=== PATIENT | male | born 1975 | race Caucasian/White ===

== ENCOUNTER 2016-08-10 03:54 | Inpatient (IN) | payer MEDICAID, OTHER ==
[2016-08-10] VITALS (11 sets, daily range): BP systolic 126–202; BP diastolic 72–121; PULSE 91–120; RESP 18–20; TEMP 97.5–100.1; O2SAT 94–100
[~2016-08-10] VITALS: Ht 182.9 cm; Wt 85.0 kg
[2016-08-10] MEDS: SODIUM CHLOR 0.9% 1000 ML INJ 1,000 ML IV SCH ×4 (04:11→20:14)
[2016-08-10] MEDS ORDERED: LORazepam 2 MG/ML VIAL IV PUSH ONE ×2 (04:15→05:30)
[2016-08-10] MEDS ORDERED: SODIUM CHLORIDE 0.9% FLUSH 5 ML FLUSH IVF PRN (04:15)
[2016-08-10] MEDS ORDERED: GLUCAGON 1 MG/ML VIAL IV PUSH ONE (04:15)
[2016-08-10 04:18] LABS: AUTOMATED NEUTROPHIL # 12.7 TH/MM3 (1.8-7.7); BASOPHIL % 0.2 % (0.0-2.0); EOSINOPHIL # 0.2 TH/MM3 (0-0.4); EOSINOPHIL % 1.1 % (0.0-4.0); HEMATOCRIT 44.3 % (39.0-51.0); HEMO FLAGS DIFF FINAL; LYMPH % 16.5 % (9.0-44.0); LYMPHOCYTE # 2.8 TH/MM3 (1.0-4.8); MEAN CELL VOLUME 88.4 FL (80.0-100.0); MEAN CORPUSCULAR HEMOGLOBIN 29.3 PG (27.0-34.0); MEAN CORPUSCULAR HGB CONC 33.2 % (32.0-36.0); MONO % 6.5 % (0.0-8.0); NEUT % 75.7 % (16.0-70.0); PLATELET COUNT 325 TH/MM3 (150-450); RED BLOOD COUNT 5.02 MIL/MM3 (4.50-5.90); RED CELL DISTRIBUTION WIDTH 12.6 % (11.6-17.2); WHITE BLOOD COUNT 16.8 TH/MM3 (4.0-11.0)
[2016-08-10 04:45] LABS: BICARBONATE 27.4 MEQ/L (21.0-32.0); POTASSIUM 3.7 MEQ/L (3.5-5.1)
--- NOTE | 2016-08-10 05:13 | RADRPT ---
EXAM DATE/TIME: 08/10/2016 04:37 [place] COMPARISON: No previous studies available for comparison. INDICATIONS : Evaluate for foreign body. RADIATION DOSE: 15.78 CTDIvol (mGy) MEDICAL HISTORY : None SURGICAL HISTORY : None. ENCOUNTER: Initial ACUITY: 1 day PAIN SCORE: 4/10 LOCATION: throat TECHNIQUE: Volumetric scanning of the neck was performed. Using automated exposure control and adjustment of th e mA and/or kV according to patient size, radiation dose was kept as low as reasonably achievable to obtain optimal diagnostic quality images. FINDINGS: Examination of the skull base demonstrates no evidence of deep infiltrating mucosal lesion. The oroph arynx, hypopharynx, glottic and subglottic airway demonstrate no abnormality. Vallecular cyst is pres ent on the right measuring 15 mm. No foreign body is identified. Examination of the neck for adenopathy demonstrates no abnormally large lymph nodes by CT criteria. T he thyroid gland demonstrates no abnormality. Lung apices demonstrate no evidence of pulmonary nodule. Bone windows are unremarkable. CONCLUSION: 1. No foreign body is identified. Unremarkable CT scan of the neck. No masses are identified. Jesus Bui MD on August 10, 2016 at 5:09 Board Certified Radiologist. This report was verified electronically.
[2016-08-10] MEDS ORDERED: methylPREDNISolone SOD SUCC 125 MG/2 ML VIAL IVP ONE (05:30)
--- NOTE | 2016-08-10 05:32 | PD ---
HPI Chief Complaint: Foreign Body Time Seen by Provider: 04:01 Travel History International Travel<30 days: No Contact w/Intl Traveler<30days: No Traveled to known affect area: No History of Present Illness HPI 41-year-old male arrives to the ER by private auto. He was eating a sandwich at about 3:30 in the morning. He states is a bit of a night owl. It contained processed ribs apparently. While swallowing he's felt a sudden pain in the upper neck/esophagus described as a sensation of foreign body. For him it is extremely uncomfortable however he refuses pain medication. He has no difficulty breathing. He states he's had pharyngitis for the past few days. He 's had no fever. His girlfriend notes his right ear has been bothersome. He has never undergone endoscopy. No similar prior episode has occurred. He denies drug abuse/IV drug abuse. He denies smoking history and alcohol history. PFSH Past Medical History Medical History: Denies Significant Hx Immunizations Current: Yes Tetanus Vaccination: Unknown Influenza Vaccination: No Past Surgical History Surgical History: No Previous Surgery Social History Alcohol Use: No Tobacco Use: No Substance Use: No Allergies-Medications (Allergen,Severity, Reaction): Coded Allergies: No Known Allergies (Unverified , 08/10/16) Reported Meds & Prescriptions Reported Meds & Active Scripts Active No Active Prescriptions or Reported Medications Review of Systems Except as stated in HPI: all other systems reviewed are Neg Respiratory: Positive: Wheezing Physical Exam Narrative GENERAL: 41-year-old male well-nourished well-developed quite anxious SKIN: Warm and dry. Piloerection observed. HEAD: Atraumatic. Normocephalic. EYES: Pupils equal and round. No scleral icterus. No injection or drainage. ENT: No nasal bleeding or discharge. Mucous membranes pink and moist. Cerumen impaction present bilaterally. Posterior oropharynx is slightly erythematous however there is no exudate about the tonsils, asymmetry or unilateral depression of the soft palate. NECK: Trachea midline. No JVD. Minimal anterior adenopathy. CARDIOVASCULAR: Mild tachycardia at about 100 or so. Regular rhythm. RESPIRATORY: Mild tachypnea. Wheezing present. GASTROINTESTINAL: Abdomen soft, non-tender, nondistended. Hepatic and splenic margins not palpable. MUSCULOSKELETAL: No obvious deformities. No clubbing. No cyanosis. No edema. NEUROLOGICAL: Awake and alert. No obvious cranial nerve deficits. Motor grossly within normal limits. Normal speech. PSYCHIATRIC: Patient is fairly anxious in fact nearly hysterical. No apparent response to internal stimulus. Data Data Last Documented VS Vital Signs Date Time Temp Pulse Resp B/P Pulse Ox O2 Delivery O2 Flow Rate FiO2 08/10/16 05:17 91 20 142/83 98 Nasal Cannula 2 08/10/16 04:05 98.0 Orders Basic Metabolic Panel (Bmp) (08/10/16 04:01) Complete Blood Count With Diff (08/10/16 04:01) Iv Access Insert/Monitor (08/10/16 04:01) Ecg Monitoring (08/10/16 04:01) Oximetry (08/10/16 04:01) Sodium Chlor 0.9% 1000 Ml Inj (Ns 1000 M (08/10/16 04:01) Sodium Chloride 0.9% Flush (Ns Flush) (08/10/16 04:15) Lorazepam Inj (Ativan Inj) (08/10/16 04:15) Ct Soft Tiss Neck W/O Iv Cont (08/10/16 ) Glucagon Inj (Glucagon Inj) (08/10/16 04:15) Lorazepam Inj (Ativan Inj) (08/10/16 05:30) Methylprednisolone So Succ Inj (Solumedr (08/10/16 05:30) Albuterol Neb (Albuterol Neb) (08/10/16 05:30) Labs Laboratory Tests Test 08/10/16 04:10 White Blood Count 16.8 TH/MM3 Red Blood Count 5.02 MIL/MM3 Hemoglobin 14.7 GM/DL Hematocrit 44.3 % Mean Corpuscular Volume 88.4 FL Mean Corpuscular Hemoglobin 29.3 PG Mean Corpuscular Hemoglobin 33.2 % Concent Red Cell Distribution Width 12.6 % Platelet Count 325 TH/MM3 Mean Platelet Volume 9.0 FL Neutrophils (%) (Auto) 75.7 % Lymphocytes (%) (Auto) 16.5 % Monocytes (%) (Auto) 6.5 % Eosinophils (%) (Auto) 1.1 % Basophils (%) (Auto) 0.2 % Neutrophils # (Auto) 12.7 TH/MM3 Lymphocytes # (Auto) 2.8 TH/MM3 Monocytes # (Auto) 1.1 TH/MM3 Eosinophils # (Auto) 0.2 TH/MM3 Basophils # (Auto) 0.0 TH/MM3 CBC Comment DIFF FINAL Differential Comment Sodium Level 135 MEQ/L Potassium Level 3.7 MEQ/L Chloride Level 99 MEQ/L Carbon Dioxide Level 27.4 MEQ/L Anion Gap 9 MEQ/L Blood Urea Nitrogen 11 MG/DL Creatinine 1.20 MG/DL Estimat Glomerular Filtration 67 ML/MIN Rate Random Glucose 150 MG/DL Calcium Level 8.9 MG/DL [facility] Medical Decision Making Medical Screen Exam Complete: Yes Emergency Medical Condition: Yes Differential Diagnosis Impaction of food bolus in the esophagus, esophagitis, bacterial pharyngitis or viral pharyngitis, anxiety Narrative Course CBC & BMP Diagram 08/10/16 04:10 Last [address] 08/10/16 0000 Signed Impressions: Service Date/Time: Wednesday, August 10, 2016 04:37 - CONCLUSION: 1. No foreign body is identified. Unremarkable CT scan of the neck. No masses are identified. Jesus Bui MD Patient reassessed at about 5:30 AM amidst an episode of quite significant anxiety. He at that point disclosed a smoking history. DuoNebs ordered. The patient also received a second 0.5 mg dose of IV Ativan. He is concerned that the food bolus has shifted from the right side of his throat to the left side of the throat, provoking his anxiety ever more so. He has drank approximately 4 -6 ounces of ice water since his arrival and hour and a half prior to ER stay. Each sip is accompanied with coughing however he does state he feels water enter the stomach, typically after about 60 seconds or so. At we will watch the patient closely in the ER. He is hemodynamically stable. Bacterial etiology for erythematous change about the posterior oropharynx is considered quite unlikely. The patient's significant other reports that the he typically has a tendency to conduct his behavior in a dramatic fashion. Case discussed with gastroenterology, Dr. Layne, who will take the patient to the endoscopy suite early this morning. Diagnosis Primary Impression: Foreign body of esophagus Qualified Code: T18.108A - Foreign body of esophagus, initial encounter Scripts No Active Prescriptions or Reported Meds Jeremías Potts MD Aug 10, 2016 05:32
[2016-08-10] MEDS: RESP: ALBUTEROL 2.5 MG/3 ML NEB (SCH) INH ×2 (05:38→05:39)
[2016-08-10] MEDS ORDERED: PROPOFOL 200 MG/20 ML AMP IV ONE (08:29)
[2016-08-10] MEDS ORDERED: AMPICILLIN/SULBAC 3 GM/NS 100 ML IV ONE ×2 (09:00)
[2016-08-10] MEDS ORDERED: AMPICILLIN-SULBACTAM INJ 3 GM VIAL IM SCH (09:00)
[2016-08-10] MEDS ORDERED: DO NOT ADM ANY ANTICOAGULANT DRUGS XX PRN (10:15)
--- NOTE | 2016-08-10 11:18 | MB ---
cc: KEIRA VILLEDA M.D., DANIEL C. MD DATE OF CONSULTATION: 08/10/[address] Potts REASON FOR CONSULTATION Possible foreign body in the esophagus. HISTORY OF PRESENT ILLNESS Mr. Howard is a 41-year-old gentleman, not a very good historian. He was battling pharyngitis symptoms for the last couple of days. He came to the emergency room with complaints of sore throat, pain on swallowing after eating a sandwich earlier this morning around 3:30 a.m. The patient had some fever, some ear pain according to his girlfriend. He never had this type of problem before. A CT neck done in the emergency room was negative. He was given also some breathing treatment and anxiolytics as he was quite agitated. He denies any weight loss, constipation, melena, hematemesis or hematochezia. He admits he may have had some issues with swallowing for a while. PAST MEDICAL HISTORY None. PAST SURGICAL HISTORY None. SOCIAL HISTORY Denies smoking, drinking or drug use. ALLERGIES No known allergies. MEDICATIONS Currently none. REVIEW OF SYSTEMS CONSTITUTIONAL: He did have some fever. No chills. ENT: He does have dysphagia or odynophagia in the upper part of his throat. PULMONARY: Denies any shortness of breath or cough. GASTROINTESTINAL: As above. CARDIOVASCULAR: Denies any pedal edema or palpitations. SKIN: No alteration in baseline skin lesion. NEUROLOGIC: No history of TIA or CVA kind of symptoms. PHYSICAL EXAMINATION GENERAL: On clinical exam he is sitting in bed. He is quite anxious. VITAL SIGNS: Pulse 100, blood pressure 142/83. HEENT: UBTCH. NECK: No JVD. No lymphadenopathy. CHEST: Clear to the auscultation and percussion. CARDIOVASCULAR: S1, S2. No murmur. ABDOMEN: Soft, nontender. Bowel sounds are present. MOTION PICTURE PROJECTIONIST: Awake, alert, oriented x3. No focal signs identified. LABORATORY White count 16.8, hemoglobin 14.7, platelets 325. Chemistry: Glucose 150, otherwise CMP normal. IMAGING CT of the neck was done and negative for any pathology. The patient was given water in the emergency room which he was able to swallow. He is swelling his saliva with no issues. Drinking okay. IMPRESSION Oropharyngeal dysphagia, worsening after eating a sandwich last night, concern for possible foreign body in his esophagus, acute pharyngitis per primary. RECOMMENDATIONS Upper endoscopy with possible dilatation and foreign body removal will be scheduled. The risks and benefits were discussed with the patient and he is agreeing with it. I would like to thank Dr. Potts for referring him to our office for consultation. If no pathology or explanation is found in his esophagus, he will be referred back to emergency room or admission. Thank you again. Will continue to follow the patient along with you. Keira Villeda MD BSB/BT /9:16 AM /11:02 AM
[2016-08-10] MEDS ORDERED: NALOXONE HCL 0.4 MG/ML AMP IV PRN (12:00)
[2016-08-10] MEDS ORDERED: ACETAMINOPHEN 325 MG TAB PO PRN (12:00)
[2016-08-10] MEDS ORDERED: SODIUM CHLORIDE 0.9% FLUSH 5 ML FLUSH FLUSH PRN (12:00)
[2016-08-10] MEDS ORDERED: LORazepam 2 MG/ML VIAL IV PUSH PRN (12:00)
--- NOTE | 2016-08-10 12:01 | HHI.HP ---
[facility] No Primary Care Physician Admission Diagnosis Diagnoses: Chief Complaint: Throat pain, sensation of foreign body Travel History International Travel<30 Days: No Contact w/Intl Traveler <30 Da: No Traveled to Known Affected Are: No History of Present Illness The patient is a 41-year-old male presenting to the hospital with neck pain and the sensation that something was stuck in his throat. The patient was lethargic following endoscopy and did not want to participate in the history of present illness, therefore the history is obtained from the medical record and discussion with nursing. Apparently he was eating a sandwich at about 3:30 in the morning and while swallowing he felt a sudden pain in the upper neck/ esophagus described as a sensation of a foreign body. He had no difficulty breathing associated with it. He states he's had pharyngitis for the past few days. He's had no fever. His girlfriend notes his right ear has been bothersome. He has had no similar prior episode prior to this. He was taken to endoscopy by GI and no foreign body was visualized. A mucocele was noted during endoscopy. Following endoscopy he was lethargic and resting on the stretcher. He did not open his eyes. He would just nod or shake his head in response to some questions. Review of Systems ROS Limitations: Clinical Condition, Uncooperative, Refused, Poor Historian Except as stated in HPI: all other systems reviewed are Neg Past Family Social History Past Medical History Unable to obtain at this time. Past Surgical History Unable to obtain at this time. Allergies: Coded Allergies: No Known Allergies (Unverified , 08/10/16) Active Ordered Medications Current Medications Medications (Trade) Dose Ordered Sig/Nehemiah Route Start Time Stop Time Status Last Admin (NS 1000 ml Inj) 1,000 ml @ 125 mls/hr Q8H IV 08/10/16 04:01 08/10/16 12:00 08/10/16 09:27 IV Flush 2 ml 2 ml UNSCH PRN IVF 08/10/16 04:15 08/10/16 04:12 (Unasyn Inj/NS Inj) 100 ml @ 200 mls/hr Q6H IV 08/10/16 15:00 Miscellaneous Information ALL NURSING DEPARTME... UNSCH PRN XX 08/10/16 10:15 08/11/16 10:14 Family History Unable to obtain at this time. Social History The patient indicates that he smokes 1 pack per day. He denies smoking or illicit drug use. Physical Exam Vital Signs Vital Signs Date Time Temp Pulse Resp B/P Pulse Ox O2 Delivery O2 Flow Rate FiO2 08/10/16 11:00 99.8 93 16 136/69 99 Room Air 08/10/16 10:00 106 14 154/74 99 Nasal Cannula 4 08/10/16 09:45 111 14 136/76 99 Nasal Cannula 4 08/10/16 09:30 112 14 153/85 94 Nasal Cannula 4 08/10/16 09:15 108 14 151/87 99 Nasal Cannula 4 08/10/16 08:57 99.8 116 14 160/80 100 Simple Mask 6 08/10/16 07:45 100.1 109 20 164/72 97 Nasal Cannula 2 08/10/16 07:13 109 20 156/78 98 Nasal Cannula 2 08/10/16 05:55 100 40 08/10/16 05:17 91 20 142/83 98 Nasal Cannula 2 08/10/16 04:05 98.0 100 20 202/121 98 Room Air 08/10/16 04:04 20 08/10/16 03:58 98.0 120 20 144/99 96 Physical Exam GENERAL: Well-nourished, well-developed quite, sleeping. SKIN: Warm and dry. Piloerection observed. HEAD: Atraumatic. Normocephalic. EYES: Pupils equal and round. No scleral icterus. No injection or drainage. ENT: No nasal bleeding or discharge. Mucous membranes pink and moist. Posterior oropharynx is slightly erythematous however there is no exudate about the tonsils, asymmetry or unilateral depression of the soft palate. NECK: Trachea midline. No JVD. Minimal anterior adenopathy. CARDIOVASCULAR: Tachycardic, no murmurs. RESPIRATORY: Poor respiratory effort. Clear to auscultation bilaterally. GASTROINTESTINAL: Abdomen soft, non-tender, nondistended. Hepatic and splenic margins not palpable. MUSCULOSKELETAL: No obvious deformities. No clubbing. No cyanosis. No edema. NEUROLOGICAL: Lethargic. No obvious cranial nerve deficits. Motor grossly within normal limits. PSYCHIATRIC: Withdrawn. Laboratory Laboratory Tests Test 08/10/16 04:10 White Blood Count 16.8 Red Blood Count 5.02 Hemoglobin 14.7 Hematocrit 44.3 Mean Corpuscular Volume 88.4 Mean Corpuscular Hemoglobin 29.3 Mean Corpuscular Hemoglobin 33.2 Concent Red Cell Distribution Width 12.6 Platelet Count 325 Mean Platelet Volume 9.0 Neutrophils (%) (Auto) 75.7 Lymphocytes (%) (Auto) 16.5 Monocytes (%) (Auto) 6.5 Eosinophils (%) (Auto) 1.1 Basophils (%) (Auto) 0.2 Neutrophils # (Auto) 12.7 Lymphocytes # (Auto) 2.8 Monocytes # (Auto) 1.1 Eosinophils # (Auto) 0.2 Basophils # (Auto) 0.0 CBC Comment DIFF FINAL Differential Comment Sodium Level 135 Potassium Level 3.7 Chloride Level 99 Carbon Dioxide Level 27.4 Anion Gap 9 Blood Urea Nitrogen 11 Creatinine 1.20 Estimat Glomerular Filtration 67 Rate Random Glucose 150 Calcium Level 8.9 Result Diagram: 08/10/16 0410 08/10/16 0410 Imaging Last Impressions Neck CT 08/10/16 0000 Signed Impressions: Service Date/Time: Wednesday, August 10, 2016 04:37 - CONCLUSION: 1. No foreign body is identified. Unremarkable CT scan of the neck. No masses are identified. Jesus Bui MD Assessment and Plan Assessment and Plan Throat pain Thought to be secondary to foreign body ingestion. CT of the neck was negative. GI was consulted and endoscopy was negative for foreign body but did reveal mucocele. The patient has had a sore throat several days prior to admission. He was started on IV antibiotics. - Continue Unasyn. - ENT consult pending. - Oxygen as needed and monitor airway. Duonebs as needed. - Keep the patient nothing by mouth. Swallow eval requested. - IVFs. - check a rapid strep screen. HTN Likely a stress response. No history of hypertension in the past. - Continue to monitor for now. Tachycardia Also likely a stress response. - IV fluids. - Continue to monitor. - Obtain an EKG. Agitation Unsure if the patient has a psych history but the patient was very agitated earlier. Currently he is lethargic. - Ativan as needed. Nicotine abuse Smokes a pack a day. - nicotine patch. - cessation instruction. Hypoglycemia May be a stress reaction. - Check a hemoglobin A1c. PPx: SCDs. Discussed Condition With Pt, nurse. Dwight Phelps DO Aug 10, 2016 12:01
[2016-08-10] MEDS ORDERED: RESP: ALBUTEROL 2.5 MG/IPRATROPIUM 0.5 MG NEB (PRN) NEB (12:15)
[2016-08-10] MEDS: DEXAMETHASONE SOD PHOS 4 MG/ML VIAL IV PUSH SCH ×2 (12:48→21:54)
[2016-08-10] MEDS: NICOTINE 21 MG/24 HR PATCH TD SCH (12:50)
[2016-08-10] MEDS: AMPICILLIN/SULBAC 3 GM/NS 100 ML IV SCH ×4 (15:23→20:13)
[2016-08-10 20:03] LABS: HEMOGLOBIN A1a 0.9 %; HEMOGLOBIN A1b 1.7 %; HEMOGLOBIN Ao 85.1 %; HEMOGLOBIN LA1C 2.3 %; HEMOGLOBIN P3 3.9 %
[2016-08-10] MEDS: SODIUM CHLORIDE 0.9% FLUSH 5 ML FLUSH FLUSH SCH (20:10)
[2016-08-10] MEDS: ACETAMINOPHEN 325 MG TAB PO PRN (20:16)
[2016-08-10] MEDS ORDERED: REMOVE OLD NICODERM (NICOTINE) PATCH TD SCH (21:00)
[2016-08-11] VITALS: BP 130/72; PULSE 79; RESP 16; TEMP 97.1; O2SAT 98
[2016-08-11] MEDS ORDERED: PANTOPRAZOLE SODIUM 40 MG VIAL IV PUSH SCH (03:45)
[2016-08-11] MEDS: AMPICILLIN/SULBAC 3 GM/NS 100 ML IV SCH ×4 (03:47→08:11)
[2016-08-11 04:00] VITALS: BP 130/70; PULSE 79; RESP 16; TEMP 97.1; O2SAT 97
[2016-08-11] MEDS: DEXAMETHASONE SOD PHOS 4 MG/ML VIAL IV PUSH SCH (05:29)
[2016-08-11] MEDS: NICOTINE 21 MG/24 HR PATCH TD SCH (05:34)
[2016-08-11 07:50] VITALS: BP 131/69; PULSE 86; RESP 20; TEMP 97.1
[2016-08-11 08:01] LABS: AUTOMATED NEUTROPHIL # 18.3 TH/MM3 (1.8-7.7); BASOPHIL % 0.2 % (0.0-2.0); HEMATOCRIT 40.5 % (39.0-51.0); HEMO FLAGS DIFF FINAL; LYMPH % 5.4 % (9.0-44.0); LYMPHOCYTE # 1.1 TH/MM3 (1.0-4.8); MEAN CELL VOLUME 88.6 FL (80.0-100.0); MEAN CORPUSCULAR HEMOGLOBIN 29.8 PG (27.0-34.0); MEAN CORPUSCULAR HGB CONC 33.6 % (32.0-36.0); MONO % 3.9 % (0.0-8.0); NEUT % 90.5 % (16.0-70.0); PLATELET COUNT 284 TH/MM3 (150-450); RED BLOOD COUNT 4.57 MIL/MM3 (4.50-5.90); RED CELL DISTRIBUTION WIDTH 12.8 % (11.6-17.2); WHITE BLOOD COUNT 20.2 TH/MM3 (4.0-11.0)
[2016-08-11] MEDS: SODIUM CHLOR 0.9% 1000 ML INJ 1,000 ML IV SCH (08:12)
--- NOTE | 2016-08-11 08:16 | MB ---
cc: ADAM LESLIE MD DATE OF CONSULTATION 08/11/2016 CHIEF COMPLAINT Dysphagia. HISTORY OF PRESENT ILLNESS This 41-year-old male presented to the hospital with neck pain yesterday morning complaining that he felt like food was stuck in his throat. He apparently was eating a sandwich in the middle of the night/early in the morning at 03:30 and felt sudden pain in his throat and his esophagus, felt like the food was stuck. He did not have any difficulty in breathing at the time but was brought into the hospital by his significant other. He reports he has never had any previous episode of this. Yesterday he underwent GI exam with an EGD and they noticed no food being stuck in his esophagus or his pharynx. They did note what appeared to be to them multiple mucoceles in has pharynx and he was admitted due to lethargy after the endoscopy and just not willing to participate much in his postoperative care, whether uncooperative or a poor historian. This morning he is resting comfortably in bed and is able to answer my questions. He reports he has had some weight loss. He feels like his weight fluctuates up and down. He says, according to his significant other, he has stopped eating as much but he does not feel that he has had significant swallowing problems recently and has not had any episodes like this prior. He reports that it started with right ear pain sometime prior to the episode of feeling like the sandwich got stuck in his throat and then, after swallowing the sandwich he felt significant pain and that is what prompted him to come to the emergency room. He is reporting today that he is able to swallow with no difficulty and is able to swallow back to way he felt like he was swallowing prior to this episode. PAST MEDICAL HISTORY None. PAST SURGICAL HISTORY None. SOCIAL HISTORY The patient reports to me that he does not drink or smoke. ALLERGIES He says he has no known drug allergies. MEDICATIONS Currently not taking any medications. PHYSICAL EXAMINATION HEENT: Exam reveals the patient to be somewhat thin. His ears are normal. No evidence of any lesions. He still complains of right ear pain. NECK: The neck exam reveals no palpable adenopathy but some pain on the right side upon palpation. Flexible laryngoscopy performed at bedside reveals a lesion on the left side of the uvula that is pale yellow in color, appears to be a possible mucus retention cyst which is an unusual location on the uvula. He has a large lesion of his base of tongue, vallecula, epiglottis area on the lingual surface of the epiglottis; this is not obstructing his airway, is erythematous and exophytic-appearing. The remainder of his larynx is without lesions. LUNGS: Clear to auscultations. HEART: Regular rate and rhythm. IMAGING STUDIES CT scan reviewed as a noncontrasted CT scan. There is some obvious lesion of the vallecula on the scan but there is no other pathology that you can see on the noncontrasted scan. 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 At this time, although on the pictures from the endoscopy it does look like it could possibly be a mucocele, with the patient's somewhat fluctuating weight as well as the right ear pain, I do have some concern that this could be a malignant process. At this time I think he should have a contrasted CT scan, continue his diet as planned and follow up me in my office after discharge to schedule a planned direct laryngoscopy with biopsies to rule out any malignant process. If he could get the CT scan obtained while here in the hospital, that would make it easier for him as he does have some financial difficulties. Otherwise, we will see him in the office and plan accordingly for biopsies and to determine if this is in fact a malignant process or if it is a vallecula mucocele as determined on the noncontrasted CT scan. I have explained this to the patient, he understands this and agrees to follow up in my office this next week. Adam CASTILLO/REINIER /7:53 AM /8:06 AM
[2016-08-11 08:17] VITALS: O2SAT 96
[2016-08-11] MEDS: ACETAMINOPHEN 325 MG TAB PO PRN (08:20)
[2016-08-11 08:43] LABS: BICARBONATE 22.5 MEQ/L (21.0-32.0); POTASSIUM 3.9 MEQ/L (3.5-5.1)
[2016-08-11] MEDS: SODIUM CHLORIDE 0.9% FLUSH 5 ML FLUSH FLUSH SCH (09:00)
[2016-08-11] MEDS ORDERED: SODIUM CHLOR 0.9% 1000 ML INJ 1,000 ML IV SCH (10:15)
--- NOTE | 2016-08-11 10:27 | HHI.DCPOC ---
Discharge Care Plan Diagnosis: (1) Mass of epiglottis Your Health Problems Are: Inflammation Swelling Difficulty to Swallow Goals to Promote Your Health * To prevent worsening of your condition and complications * To maintain your health at the optimal level Directions to Meet Your Goals Take your medications as prescribed Follow your dietary instruction Follow activity as directed Keep your appointments as scheduled Take your immunizations and boosters as scheduled If your symptoms worsen call your PCP, if no PCP go to Urgent Care Center or Emergency Room Smoking is Dangerous to Your Health. Avoid second hand smoke Call the 24-hour hour crisis hotline for domestic abuse at Dwight Phelps DO Aug 11, 2016 10:27
[2016-08-11] MEDS ORDERED: AUGM875T PO (10:33)
--- NOTE | 2016-08-11 10:39 | HHI.PR ---
Subjective Remarks The patient said that he had a muffled voice. He said he was having some difficulties with soft foods but would be able to eat broth. He wants to go home. He says he talked to the ear nose and throat doctor earlier today. He is breathing comfortably. He says he has chronic ear problems. Family at the bedside. Objective Vitals Vital Signs Date Time Temp Pulse Resp B/P Pulse Ox O2 Delivery O2 Flow Rate FiO2 08/11/16 08:17 96 21 08/11/16 07:50 97.1 86 20 131/69 08/11/16 04:00 97.1 79 16 130/70 97 08/11/16 00:00 97.1 79 16 130/72 98 08/10/16 20:00 98.0 105 18 133/79 99 08/10/16 18:21 94 21 08/10/16 15:50 97.5 103 20 129/77 96 08/10/16 13:20 98.0 91 20 126/73 94 08/10/16 12:58 99.5 91 14 128/74 98 Room Air 08/10/16 11:00 99.8 93 16 136/69 99 Room Air I/O 08/10/16 08/10/16 08/10/16 08/11/16 08/11/16 08/11/16 07:00 15:00 23:00 07:00 15:00 23:00 Intake Total 544 ml 100 ml 2000 ml Output Total 1200 ml Balance -656 ml 100 ml 2000 ml Intake Oral 100 ml 150 ml IV Total 144 ml 1850 ml Other 400 ml Output Urine Total 1200 ml # Voids 0 2 # Bowel Movements 0 0 Result Diagram: 08/11/16 0730 08/11/16 0730 Imaging Last Impressions Neck CT 08/10/16 0000 Signed Impressions: Service Date/Time: Wednesday, August 10, 2016 04:37 - CONCLUSION: 1. No foreign body is identified. Unremarkable CT scan of the neck. No masses are identified. Jesus Bui MD Objective Remarks GENERAL: Well-nourished, well-developed, in no apparent distress. SKIN: Warm and dry. Piloerection observed. HEAD: Atraumatic. Normocephalic. EYES: Pupils equal and round. No scleral icterus. No injection or drainage. ENT: No nasal bleeding or discharge. Mucous membranes pink and moist. Normal swallow function. No lymphadenopathy. NECK: Trachea midline. No JVD. Minimal anterior adenopathy. CARDIOVASCULAR: Regular rate and rhythm, no murmurs. RESPIRATORY: Clear to auscultation bilaterally. GASTROINTESTINAL: Abdomen soft, non-tender, nondistended. Hepatic and splenic margins not palpable. MUSCULOSKELETAL: No obvious deformities. No clubbing. No cyanosis. No edema. NEUROLOGICAL: No obvious cranial nerve deficits. Motor grossly within normal limits. Muffled speech. PSYCHIATRIC: Mood and affect appropriate. Procedures Endoscopy Medications and IVs Current Medications Medications (Trade) Dose Ordered Sig/Nehemiah Route Start Time Stop Time Status Last Admin Ampicillin Sodium/ Sulbactam Sodium 3 gm/Sodium Chloride 100 ml @ 200 mls/hr Q6H IV 08/10/16 15:00 08/11/16 08:11 (NS 1000 ml Inj) 1,000 ml @ 100 mls/hr Q10H IV 08/10/16 11:49 08/11/16 08:12 (NS Flush) 2 ml UNSCH PRN FLUSH 08/10/16 12:00 (NS Flush) 2 ml BID FLUSH 08/10/16 21:00 (Tylenol) 650 mg Q4H PRN PO 08/10/16 12:00 (Tylenol) 650 mg Q6H PRN PO 08/10/16 12:00 08/11/16 08:20 (Narcan Inj) 0.4 mg UNSCH PRN IV 08/10/16 12:00 (Ativan Inj) 1 mg Q4H PRN IV PUSH 08/10/16 12:00 (Habitrol 21 Mg Patch.24 Hr) 1 patch DAILY TD 08/10/16 13:00 08/11/16 05:34 Miscellaneous Information 1 HS TD 08/10/16 21:00 08/10/16 20:28 Pantoprazole Sodium 40 mg 40 mg Q24H IV PUSH 08/11/16 03:45 08/11/16 03:47 (NS 1000 ml Inj) 1,000 ml @ 100 mls/hr Q10H IV 08/11/16 10:15 UNV A/P Assessment and Plan Epiglottis mass The pt had throat pain thought to be secondary to foreign body ingestion. CT of the neck was negative. GI was consulted and endoscopy was negative for foreign body but did reveal mucocele. The patient has had a sore throat several days prior to admission. He was started on IV antibiotics. Rapid strep was negative. ENT was consulted and recommended a CT of the neck with contrast. - d/c Unasyn and Decadron. - CT of the neck with contrast has been ordered. - follow up with ENT as an outpt. Will need direct laryngoscopy. - Oxygen as needed and monitor airway. Duonebs as needed. Stable. - soft food diet per speech therapy. - IVFs. - complete a course of Augmentin in the setting of leukocytosis. HTN Likely a stress response. No history of hypertension in the past. - Continue to monitor for now. Resolved. Tachycardia Also likely a stress response. - IV fluids. - Continue to monitor. Resolved. Agitation Unsure if the patient has a psych history but the patient was very agitated earlier. Apparently he gets this way with anesthesia. - Ativan as needed. Nicotine abuse Smokes a pack a day. - nicotine patch. - cessation instruction. Hypoglycemia May be a stress reaction. - Check a hemoglobin A1c. Not elevated. PPx: SCDs. Discharge Planning Discharge home following CT of the neck. Dwight Phelps DO Aug 11, 2016 10:39
[2016-08-11] MEDS ORDERED: IOHEXOL 350 MG/ML 10 ML VIAL (for RAD DIAG) IV ONE (11:10)
--- NOTE | 2016-08-11 11:53 | RADRPT ---
EXAM DATE/TIME: 08/11/2016 11:04 [facility] COMPARISON: No previous studies available for comparison. INDICATIONS : Possible mass; complains of difficulty swallowing. IV CONTRAST: 69 cc Omnipaque 350 (iohexol) IV RADIATION DOSE: 14.74 CTDIvol (mGy) MEDICAL HISTORY : Hypertension. SURGICAL HISTORY : None. ENCOUNTER: Subsequent ACUITY: 1 day PAIN SCALE: 1/10 LOCATION: Bilateral neck TECHNIQUE: Volumetric scanning of the neck was performed. Using automated exposure control and adjustment of th e mA and/or kV according to patient size, radiation dose was kept as low as reasonably achievable to obtain optimal diagnostic quality images. FINDINGS: No prior studies available for comparison. The lymphoid tissue in Waldeyer's ring is prominent, espec ially on the right side. In the right parapharyngeal area there is an 8mm focus of low attenuation, p ossibly a small abscess. There is also a mass in the posterior right lingual region. It is unclear if this represents enlarged lymphoid tissue or other mass. Direct visualization recommended. The diamet er of this area is about 2.4 cm and extends inferiorly into the vallecula, effacing the right vallecu la. Mildly enlarged right sided retromandibular lymph node measures about 1.9 x 1.1 cm. No abnormally enl arged lymph nodes in the lower neck. The glottis appears normal. No narrowing of the subglottic airway. Thyroid intact. No acute bony abnormalities. Visualized paranasal sinuses are clear. Lung apices are clear. CONCLUSION: 1. 2.4 cm mass in the posterior right oropharynx. This likely represents enlarged lymphoid tissue or other mass in the posterior right lingual region. There is also a 8mm fluid attenuation area in the r ight parapharyngeal space, possibly a small abscess. Direct visualization recommended. 2. Mildly enlarged right sided retromandibular lymph node as above. Claudy Mondragon MD on August 11, 2016 at 11:41 Board Certified Radiologist. This report was verified electronically.
== END 2016-08-11 12:04 | disposition home or self-care (01) | DRG 156 ==
LOC: NEPC 03:54 → HOCB 13:33
PROVIDERS: ADMIT Hospitalist; ATTEND Hospitalist
PROC: 0DJ08ZZ Inspection of Upper Intestinal Tract, Via Natural or Artificial Opening Endoscopic (ICD-10-PCS; principal; 2016-08-10 08:00)
PROC: 0CJS8ZZ Inspection of Larynx, Via Natural or Artificial Opening Endoscopic (ICD-10-PCS; 2016-08-11)
DX: J39.2 Other diseases of pharynx (principal); R13.12 Dysphagia, oropharyngeal phase; I10 Essential (primary) hypertension; R00.0 Tachycardia, unspecified; R45.1 Restlessness and agitation; F17.210 Nicotine dependence, cigarettes, uncomplicated; E16.2 Hypoglycemia, unspecified; K44.9 Diaphragmatic hernia without obstruction or gangrene
CPT/HCPCS: 70490; 70491; 80048; 83036; 85025; 87081; 87880; 94640; 94664; 96361; 96374; 96375; 96376; C9113; J0295; J1100; J1610; J2060; J2930; J7030; J7613; Q9967

== ENCOUNTER 2016-10-31 20:35 | Emergency (ER) | payer MEDICAID, OTHER ==
[~2016-10-31] VITALS: Ht 182.9 cm; Wt 78.0 kg
[~2016-10-31 20:35] MED LIST: AUGM875T PO
[2016-10-31 20:37] VITALS: BP 138/69; PULSE 99; RESP 16; TEMP 99; O2SAT 98
[2016-10-31] MEDS ORDERED: KETOROLAC TROMETHAMINE 60 MG/2 ML (IM) VIAL IM ONE (21:15)
--- NOTE | 2016-10-31 21:29 | RADRPT ---
EXAM DATE/TIME: 10/31/2016 21:14 [facility] COMPARISON: No previous studies available for comparison. INDICATIONS : Right tibia pain, fell MEDICAL HISTORY : None. SURGICAL HISTORY : None. ENCOUNTER: Initial ACUITY: 1 day PAIN SCORE: 10/10 LOCATION: Right Tibia FINDINGS: There is soft tissue swelling in the lateral mid to distal calf region. No evidence of underlying bon y abnormality. Specifically no evidence of fracture or destructive change. No periosteal reaction is present. CONCLUSION: Soft tissue swelling. No evidence of acute bony process Galdino Guerrero MD on October 31, 2016 at 21:26 Board Certified Radiologist. This report was verified electronically.
--- NOTE | 2016-10-31 21:32 | PD ---
HPI Chief Complaint: Laceration/Skin Injury Time Seen by Provider: 21:32 Travel History International Travel<30 days: No Contact w/Intl Traveler<30days: No Traveled to known affect area: No History of Present Illness HPI 41-year-old male presents to the emergency department for evaluation of her right distal lower extremity injury. Patient states that he was camping and walking through the [place] when his foot got caught on a log. He sustained an abrasion to his right lateral calf. States that the leg has been painful to ambulate on since the incident. Rates the pain an 8 out of 10. Denies any alterations in sensation. He is up-to-date on his tetanus vaccination. No other symptoms to report. PFSH Past Medical History Asthma: Yes Blood Disorders: No Anxiety: Yes Depression: No Heart Rhythm Problems: No Cancer: No Cardiovascular Problems: No High Cholesterol: No Chemotherapy: No Chest Pain: No Congestive Heart Failure: No COPD: No Diabetes: No Endocrine: No Genitourinary: No Hypertension: Yes Musculoskeletal: No Neurologic: No Psychiatric: Yes (Bipolar, ADHD, OCD) Reproductive: No Respiratory: No Immunizations Current: Yes Radiation Therapy: No Sleep Apnea: No Thyroid Disease: No Past Surgical History Surgical History: No Previous Surgery Other Surgery: Yes (miniscus, tubes in ears) Social History Alcohol Use: No Tobacco Use: No Substance Use: No Allergies-Medications (Allergen,Severity, Reaction): Coded Allergies: No Known Allergies (Unverified , 10/31/16) Reported Meds & Prescriptions Reported Meds & Active Scripts Active Ibuprofen 800 Mg Tab 800 Mg PO Q8H PRN Augmentin (Amoxicillin-Clavulanate) 875-125 mg Tab 875 Mg PO BID not for use in CrCl <30 ml/min. Review of Systems Except as stated in HPI: all other systems reviewed are Neg Physical Exam Narrative GENERAL: Well-nourished male patient, in no acute distress SKIN: Focused skin assessment warm/dry. 11 cm curvilinear superficial abrasion on the anterior lateral distal right lower extremity. HEAD: Atraumatic. Normocephalic. EYES: Pupils equal and round. No scleral icterus. No injection or drainage. ENT: No nasal bleeding or discharge. Mucous membranes pink and moist. NECK: Trachea midline. No JVD. CARDIOVASCULAR: Regular rate and rhythm. No murmur appreciated. RESPIRATORY: No accessory muscle use. Clear to auscultation. Breath sounds equal bilaterally. GASTROINTESTINAL: Abdomen soft, non-tender, nondistended. Hepatic and splenic margins not palpable. MUSCULOSKELETAL: No obvious deformities. No clubbing. No cyanosis. There is mild induration edema surrounding the area of abrasion. Compartments on the affected extremity are all soft. Distal pulses are palpable. Cap refills within normal limits. NEUROLOGICAL: Awake and alert. No obvious cranial nerve deficits. Motor grossly within normal limits. Normal speech. Data Data Last Documented VS Vital Signs Date Time Temp Pulse Resp B/P Pulse Ox O2 Delivery O2 Flow Rate FiO2 10/31/16 20:37 99.0 99 16 138/69 98 Room Air Orders Tibia/Fibula (Ap/Lat) (10/31/16 ) Ketorolac Inj (Toradol Inj) (10/31/16 21:15) MDM Medical Decision Making Medical Screen Exam Complete: Yes Emergency Medical Condition: Yes Medical Record Reviewed: Yes Differential Diagnosis Contusion versus hematoma versus fracture versus sprain versus less likely compartment syndrome Narrative Course 41-year-old male presents to emergency department for evaluation right lower extremity pain. Patient appears without distress. He does have swelling surrounding the area of abrasion. X-ray imaging is without acute bony abnormality. Patient is encouraged to ice and elevate. He is counseled on compartment syndrome and risks following injury. He agrees to return immediately with any acute worsening of symptoms. Diagnosis Primary Impression: Right leg injury Qualified Code: S89.91XA - Right leg injury, initial encounter Additional Impressions: Contusion Qualified Code: S80.11XA - Contusion of right lower leg, initial encounter Abrasion of lower extremity Qualified Code: S80.811A - Abrasion of lower extremity, right, initial encounter Referrals: Primary Care Physician Patient Instructions: Contusion in Adults (ED), General Instructions Departure Forms: Tests/Procedures, Work Release Enter return to work date: November 02, 2016 Additional Instructions: Ice and elevate to reduce pain and swelling Follow-up with a primary care provider Return immediately with any acute worsening of symptoms Med/Other Pt SpecificInfo: Prescription(s) given Scripts Ibuprofen 800 Mg [id number] Mg PO Q8H PRN (Pain/Inflammation) #30 TAB Ref 0 Prov:Idalia Guerrero 10/31/16 Disposition: 01 DISCHARGE HOME Condition: Stable Idalia Guerrero October 31, 2016 21:32
[2016-10-31] MEDS ORDERED: IBUP800T23 PO (21:38)
== END 2016-10-31 22:48 | disposition home or self-care (01) ==
LOC: NEPK 20:35
DX: S80.11XA Contusion of right lower leg, initial encounter (principal); S80.811A Abrasion, right lower leg, initial encounter; I10 Essential (primary) hypertension; W23.0XXA Caught, crushed, jammed, or pinched between moving objects, initial encounter; Y93.01 Activity, walking, marching and hiking; Y92.828 Other wilderness area as the place of occurrence of the external cause; Y99.9 Unspecified external cause status
CPT/HCPCS: 73590; 96372; 99283; J1885